=== PATIENT | female | born 1970 | race Hispanic/Latino ===

== ENCOUNTER 2018-11-01 13:25 | Emergency (ER) | payer OTHER, SELFPAY ==
[2018-11-01 13:30] VITALS: PULSE 66; RESP 18; TEMP 37.2; O2SAT 100; BMI 27.2
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
[2018-11-01] MEDS: IBUPROFEN 400 MG TABLET PO (15:16)
[2018-11-01 15:38] VITALS: BP 116/82; PULSE 61; RESP 20; O2SAT 100
== END 2018-11-01 15:38 | disposition home or self-care (01) ==
PROVIDERS: Emergency Provider Emergency Medicine
DX: T22.211A Burn of second degree of right forearm, initial encounter (principal); T22.112A Burn of first degree of left forearm, initial encounter; X11.8XXA Contact with other hot tap-water, initial encounter
CPT/HCPCS: 99283